=== PATIENT | female | born 1995 | race African-American/Black ===

== ENCOUNTER 2019-08-23 13:52 | Emergency (ER) | payer MEDICAID ==
[~2019-08-23] VITALS: Ht 177.8 cm; Wt 101.0 kg
[2019-08-23 14:11] VITALS: BP 116/75
== END 2019-08-23 16:36 | disposition left against medical advice (07) ==
LOC: ER 13:52
DX: Z53.21 Procedure and treatment not carried out due to patient leaving prior to being seen by health care provider (principal)